=== PATIENT | male | born 1990 | race Caucasian/White ===

== ENCOUNTER 2019-02-02 19:08 | Emergency (ER) | payer OTHER ==
[~2019-02-02] VITALS: Ht 177.8 cm; Wt 120.2 kg
[2019-02-02 19:24] VITALS: Ht 177.8 cm; Wt 120.2 kg
[2019-02-02 20:29] VITALS: BP 133/64
== END 2019-02-02 20:29 | disposition home or self-care (01) ==
LOC: ED 19:08
DX: J02.9 Acute pharyngitis, unspecified (principal)